=== PATIENT | female | born 1995 | race Caucasian/White ===

== ENCOUNTER 2018-11-20 11:07 | Day surgery (SDC) | payer BC ==
[~2018-11-20 11:07] MED LIST: Fluorescein 5 ML Vial ONE; Midazolam 1 MG/ML 2 ML SDV ONE; Octyl 2-Cyanoacrylate 1 Tube ONE; Propofol 200 MG/20 ML SDV ONE; Sodium Chloride 0.9% 10 ML SDV IV PRN; Sodium Chloride 0.9% 10 ML Syringe FLUSH PRN; Sodium Chloride 0.9% 2.5 ML Syringe FLUSH PRN; fentaNYL 100 MCG/2 ML SDV ONE
[2018-11-20] MEDS ORDERED: Dexamethasone 4 MG/ML 5 ML MDV ONE (12:18)
[2018-11-20] MEDS ORDERED: Lidocaine 2% 5 ML SDV ONE (12:31)
[2018-11-20] MEDS ORDERED: Rocuronium 100 MG/10 ML MDV ONE (12:31)
--- NOTE | 2018-11-20 12:38 | PCM.PREANE ---
Preanesthetic Assessment - Anesthesia/Transfusion/Family Hx Anesthesia History: Prior Anesthesia Without Reaction Family History of Anesthesia Reaction: No Transfusion History: No Prior Transfusion(s) - Review of Systems General: No Symptoms Pulmonary: No Symptoms Cardiovascular: No Symptoms Gastrointestinal: No Symptoms Neurological: No Symptoms Other: Reports: None - Physical Assessment NPO Status Date: 11/20/18 (cl at 0930) O2 Sat by Pulse Oximetry: 100 Respiratory Rate: 16 Vital Signs: Last Vital Signs Temp 97.3 F 11/20/18 11:45 Pulse 78 11/20/18 11:45 Resp 16 11/20/18 11:45 BP 120/71 11/20/18 11:45 Pulse Ox 100 11/20/18 11:45 Height: 5 ft 4 in Weight: 53.977 kg ASA Class: 2 Mental Status: Alert & Oriented x3 Airway Class: Mallampati = 2 Dentition: Reports: Normal Dentition ROM/Head Extension: Full Lungs: Clear to Auscultation, Normal Respiratory Effort Cardiovascular: Regular Rate, Regular Rhythm - Lab Values: Laboratory Last Values WBC 7.16 K/uL (4.0-11.0) 11/19/18 14:48 RBC 4.32 M/uL (4.30-5.90) 11/19/18 14:48 Hgb 12.5 g/dL (12.0-16.0) 11/19/18 14:48 Hct 37.9 % (36.0-46.0) 11/19/18 14:48 MCV 87.7 fL (80.0-98.0) 11/19/18 14:48 MCH 28.9 pg (27.0-32.0) 11/19/18 14:48 MCHC 33.0 g/dL (31.0-37.0) 11/19/18 14:48 RDW Std Deviation 40.9 fl (28.0-62.0) 11/19/18 14:48 RDW Coeff of Shaniqua 13 % (11.0-15.0) 11/19/18 14:48 Plt Count 238 K/uL (150-400) 11/19/18 14:48 MPV 9.90 fL (7.40-12.00) 11/19/18 14:48 Nucleated RBC % 0.0 /100WBC 11/19/18 14:48 Nucleated RBCs # 0 K/uL 11/19/18 14:48 HCG, Qual NEGATIVE (NEG) 11/19/18 14:48 Blood Type O POSITIVE 11/19/18 14:48 Antibody Screen NEGATIVE 11/19/18 14:48 - Allergies Allergies/Adverse Reactions: Allergies Allergy/AdvReac Type Severity Reaction Status Date / Time No Known Allergies Allergy Verified 11/17/18 13:20 - Blood Blood Available: No - Anesthesia Plan Pre-Op Medication Ordered: None - Acknowledgements Anesthesia Type Planned: General Anesthesia Pt an Appropriate Candidate for the Planned Anesthesia: Yes Alternatives and Risks of Anesthesia Discussed w Pt/Guardian: Yes Pt/Guardian Understands and Agrees with Anesthesia Plan: Yes Additional Comments: PMH: recently (4 wks) withdral from opioids (cold turkey), not on buprenorphine , methadone or nalterxone. Discussion held about appropriate use of post op opioids and dangers of tramadol. 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: Reports: Musculoskeletal History: Reports: Fracture Other Musculoskeletal History: hx of fx wrist and clavicle Psychiatric History: Reports: Anxiety Oncologic (Cancer) History: Reports: Cervix - Past Surgical History Head Surgeries/Procedures: Reports: None Female Surgical History: Reports: Section Other Female Surgeries/Procedures: x2, after last was told she had cancerous cells on her cervix- they were removed "with the big scissor" - SUBSTANCE USE Smoking Status *Q: Current Every Day Smoker Tobacco Use Within Last Twelve Months: Cigarettes Recreational Drug Use History: Yes Recreational Drug Type: Reports: Heroin - HOME MEDS Home Medications: Home Meds . [No Known Home Meds] 03/20/14 [History] - CURRENT (IN HOUSE) MEDS Current Meds: Current Medications Sodium Chloride (Saline Flush) 10 ml FLUSH ASDIRECTED PRN PRN Reason: Keep Vein Open Sodium Chloride (Saline Flush) 2.5 ml FLUSH ASDIRECTED PRN PRN Reason: Keep Vein Open Sodium Chloride (Normal Saline) 10 ml IV ASDIRECTED PRN PRN Reason: IV Use Discontinued Medications Dexamethasone (Dexamethasone) Confirm Administered Dose 20 mg .ROUTE .STK-MED ONE Stop: 11/20/18 12:19 Fentanyl (Sublimaze) Confirm Administered Dose 100 mcg .ROUTE .STK-MED ONE Stop: 11/20/18 10:23 Fluorescein Sodium (Ak-Fluor) Confirm Administered Dose 5 ml .ROUTE .STK-MED ONE Stop: 11/20/18 07:49 Acetaminophen (Ofirmev) Confirm Administered Dose 100 mls @ as directed IV .STK- MED ONE Stop: 11/20/18 07:48 Lidocaine (Xylocaine-Mpf 2%) Confirm Administered Dose 5 ml .ROUTE .STK-MED ONE Stop: 11/20/18 12:32 Midazolam HCl (Versed 1 Mg/Ml) Confirm Administered Dose 2 mg .ROUTE .STK-MED ONE Stop: 11/20/18 10:23 Octyl Cyanoacrylate (Dermabond Advance) Confirm Administered Dose 1 applic .ROUTE .STK-MED ONE Stop: 11/20/18 07:48 Propofol (Diprivan 20 Ml) Confirm Administered Dose 200 mg .ROUTE .STK-MED ONE Stop: 11/20/18 10:23 Rocuronium [place] (Zemuron) Confirm Administered Dose 100 mg .ROUTE .STK-MED ONE Stop: 11/20/18 12:32
[2018-11-20] MEDS ORDERED: Phenylephrine/Normal Saline 100 MCG/ML 10 ML Syringe ONE (13:13)
[2018-11-20] MEDS ORDERED: Sugammadex Sodium 200 MG/2 ML VIAL ONE (13:14)
[2018-11-20] MEDS ORDERED: Ketorolac 30 MG/ML SDV ONE (13:17)
[2018-11-20] MEDS ORDERED: Ondansetron 4 MG/2 ML SDV ONE (13:17)
[2018-11-20] MEDS ORDERED: fentaNYL 100 MCG/2 ML SDV IVPUSH PRN ×2 (13:23→13:41)
[2018-11-20] MEDS ORDERED: HYDROmorphone 2 MG/ML SDV IVPUSH PRN ×2 (13:23→13:41)
[2018-11-20] MEDS ORDERED: Ondansetron 4 MG/2 ML SDV IVPUSH PRN ×2 (13:23→13:41)
--- NOTE | 2018-11-20 13:29 | PCM.OPNOTE ---
- General Post-Op/Procedure Note Date of Surgery/Procedure: 11/20/18 Operative Procedure(s): Hystorscopy removal of IUD Pre Op Diagnosis: lost IUD Post-Op Diagnosis: Same Anesthesia Technique: General ET Tube Primary Surgeon: Sebastian Santos EBL in mLs: 10 Complications: None Condition: Good
--- NOTE | 2018-11-20 13:30 | PCM.DCSUM1 ---
Discharge Summary - Hospital Course Diagnosis: Stroke: No - Discharge Data Discharge Date: 11/20/18 Discharge Disposition: Home, Self-Care 01 Condition: Good - Patient Summary/Data Operative Procedure(s) Performed: Hystorscopy removal of IUD - Patient Instructions Diet: Usual Diet as Tolerated Activity: As Tolerated Driving: Do Not Drive Showering/Bathing: October Shower Notify Provider of: Fever, Increased Pain - Discharge Plan Home Medications: Home Meds . [No Known Home Meds] 03/20/14 [History] - Discharge Summary/Plan Comment DC Time >30 min.: Yes - General Info Date of Service: 11/20/18 Functional Status: Reports: Pain Controlled - Review of Systems General: Reports: No Symptoms HEENT: Reports: No Symptoms Pulmonary: Reports: No Symptoms Cardiovascular: Reports: No Symptoms Gastrointestinal: Reports: No Symptoms Genitourinary: Reports: No Symptoms Musculoskeletal: Reports: No Symptoms Skin: Reports: No Symptoms Neurological: Reports: No Symptoms Psychiatric: Reports: No Symptoms - Patient Data Vitals - Most Recent: Last Vital Signs Temp 36.3 C 11/20/18 11:45 Pulse 78 11/20/18 11:45 Resp 16 11/20/18 12:38 BP 120/71 11/20/18 11:45 Pulse Ox 100 11/20/18 12:38 Weight - Most Recent: 53.977 kg Lab Results - Last 24 hrs: Laboratory Results - last 24 hr 11/19/18 11/19/18 11/19/18 Range/Units 14:48 14:48 14:48 WBC 7.16 (4.0-11.0) K/uL RBC 4.32 (4.30-5.90) M/uL Hgb 12.5 (12.0-16.0) g/dL Hct 37.9 (36.0-46.0) % MCV 87.7 (80.0-98.0) fL MCH 28.9 (27.0-32.0) pg MCHC 33.0 (31.0-37.0) g/dL RDW Std Deviation 40.9 (28.0-62.0) fl RDW Coeff of Shaniqua 13 (11.0-15.0) % Plt Count 238 (150-400) K/uL MPV 9.90 (7.40-12.00) fL Nucleated RBC % 0.0 /100WBC Nucleated RBCs # 0 K/uL HCG, Qual NEGATIVE (NEG) Blood Type O POSITIVE Antibody Screen NEGATIVE Med Orders - Current: Current Medications Fentanyl (Sublimaze) 50 mcg IVPUSH Q5M PRN PRN Reason: Pain (severe 7-10) Stop: 11/21/18 13:23 Hydromorphone HCl (Dilaudid) 0.5 mg IVPUSH Q10M PRN PRN Reason: Pain (severe 7-10) Stop: 11/21/18 13:23 Ondansetron HCl (Zofran) 4 mg IVPUSH ONETIME PRN PRN Reason: Nausea/Vomiting Sodium Chloride (Saline Flush) 10 ml FLUSH ASDIRECTED PRN PRN Reason: Keep Vein Open Sodium Chloride (Saline Flush) 2.5 ml FLUSH ASDIRECTED PRN PRN Reason: Keep Vein Open Sodium Chloride (Normal Saline) 10 ml IV ASDIRECTED PRN PRN Reason: IV Use Discontinued Medications Dexamethasone (Dexamethasone) Confirm Administered Dose 20 mg .ROUTE .STK-MED ONE Stop: 11/20/18 12:19 Fentanyl (Sublimaze) Confirm Administered Dose 100 mcg .ROUTE .STK-MED ONE Stop: 11/20/18 10:23 Fluorescein Sodium (Ak-Fluor) Confirm Administered Dose 5 ml .ROUTE .STK-MED ONE Stop: 11/20/18 07:49 Acetaminophen (Ofirmev) Confirm Administered Dose 100 mls @ as directed IV .STK- MED ONE Stop: 11/20/18 07:48 Ketorolac Tromethamine (Toradol) Confirm Administered Dose 30 mg .ROUTE .STK- MED ONE Stop: 11/20/18 13:18 Lidocaine (Xylocaine-Mpf 2%) Confirm Administered Dose 5 ml .ROUTE .STK-MED ONE Stop: 11/20/18 12:32 Midazolam HCl (Versed 1 Mg/Ml) Confirm Administered Dose 2 mg .ROUTE .STK-MED ONE Stop: 11/20/18 10:23 Octyl Cyanoacrylate (Dermabond Advance) Confirm Administered Dose 1 applic .ROUTE .STK-MED ONE Stop: 11/20/18 07:48 Ondansetron HCl (Zofran) Confirm Administered Dose 4 mg .ROUTE .STK-MED ONE Stop: 11/20/18 13:18 Phenylephrine HCl (Phenylephrine In Ns 100 Mcg/Ml) Confirm Administered Dose 1 mg .ROUTE .STK-MED ONE Stop: 11/20/18 13:14 Propofol (Diprivan 20 Ml) Confirm Administered Dose 200 mg .ROUTE .STK-MED ONE Stop: 11/20/18 10:23 Rocuronium Tamms (Zemuron) Confirm Administered Dose 100 mg .ROUTE .STK-MED ONE Stop: 11/20/18 12:32 Sugammadex Sodium (Bridion) Confirm Administered Dose 200 mg .ROUTE .STK-MED ONE Stop: 11/20/18 13:15 - Exam General: Reports: Alert, Oriented HEENT: Reports: Pupils Equal, Pupils Reactive, EOMI, Mucous Membr. Moist/[place] Neck: Reports: Supple Lungs: Reports: Clear to Auscultation, Normal Respiratory Effort Cardiovascular: Reports: Regular Rate, Regular Rhythm GI/Abdominal Exam: Normal Bowel Sounds, Soft, Non-Tender, No Organomegaly, No Distention, No Abnormal Bruit, No Mass, Pelvis Stable (Female) Exam: Normal External Exam, Normal Speculum Exam, Normal Bimanual Exam Rectal (Female) Exam: Normal Exam, Normal Rectal Tone Back Exam: Reports: Normal Inspection, Full Range of Motion Extremities: Normal Inspection, Normal Range of Motion, Non-Tender, No Pedal Edema, Normal Capillary Refill Skin: Reports: Warm, Dry, Intact Wound/Incisions: Reports: Healing Well Neurological: Reports: No New Focal Deficit Psy/Mental Status: Reports: Alert, Normal Affect, Normal Mood
[2018-11-20 14:42] VITALS: BP 101/62
[2018-11-20] MEDS ORDERED: Lactated Ringers 1,000 ML IV SCH (14:45)
--- NOTE | 2018-11-20 14:53 | PCM.POSTAN ---
POST ANESTHESIA ASSESSMENT - MENTAL STATUS Mental Status: Alert, Oriented - RESPIRATORY Respiratory Status: Respiratory Rate WNL, Airway Patent, O2 Saturation Stable - CARDIOVASCULAR CV Status: Pulse Rate WNL, Blood Pressure Stable - GASTROINTESTINAL GI Status: No Symptoms - POST OP HYDRATION Hydration Status: Adequate & Stable
--- NOTE | 2018-11-20 14:55 | PCM48HPAN ---
Post Anesthesia Note - EVALUATION WITHIN 48HRS OF ANESTHETIC Vital Signs in Normal Range: Yes Patient Participated in Evaluation: Yes Respiratory Function Stable: Yes Airway Patent: Yes Cardiovascular Function Stable: Yes Hydration Status Stable: Yes Pain Control Satisfactory: Yes Nausea and Vomiting Control Satisfactory: Yes Mental Status Recovered: Yes Resp Rate: 16
--- NOTE | 2018-11-20 17:05 | OR ---
SURGEON: Sebastian Santos MD DATE OF PROCEDURE: PREOPERATIVE DIAGNOSIS: Lost intrauterine device. POSTOPERATIVE DIAGNOSIS: Lost intrauterine device. OPERATION PERFORMED: Hysteroscopy and removal of the lost IUD. TRAIN SYSTEM OPERATOR: OR tech. ANESTHESIA: General, Dr. May. ESTIMATED BLOOD LOSS: Minimum. COMPLICATIONS: None. FINDING: IUD in the intrauterine cavity. INDICATION FOR SURGERY: This patient does have a lost IUD. I was unable to retrieve it in the office. Ultrasound and KUB show that there is a strong possibility that the IUD is outside the uterus, so the patient is admitted to the outpatient and consented for hysteroscopy, possible diagnostic laparoscopy. PROCEDURE IN DETAIL: The patient was brought to the OR, properly identified. After adequate level of anesthesia, the patient was prepped and draped in sterile fashion as usual. Straight catheter was used to empty the bladder and cervix sequentially dilated to accommodate the small hysteroscope. Hysteroscopy was performed. The IUD is found to be in the right corner of the top of the uterus, and I used the channel through the operative hysteroscopy and I was able to remove the IUD without any problem. Once that is done and accomplished, the procedure ended. Instrument and sponge count was correct. The patient tolerated the procedure well and went to recovery room in stable general condition. RHEA / SHERMAN /[id number]
== END 2018-11-20 14:30 | disposition home or self-care (01) ==
LOC: MW.SDS 11:07
PROVIDERS: ATTEND Obstetrics & Gynecology
DX: T83.39XA Other mechanical complication of intrauterine contraceptive device, initial encounter (principal); F41.8 Other specified anxiety disorders; F17.210 Nicotine dependence, cigarettes, uncomplicated
CPT/HCPCS: 36415; 58562; 84703; 85027; 86850; 86900; 86901; J0131; J1100; J1885; J2001; J2250; J2370; J2405; J2704; J3010; J3490; J7120; A9270-GY

== ENCOUNTER 2018-12-26 04:51 | Emergency (ER) | payer BC ==
[2018-12-26] MEDS ORDERED: Acetaminophen/HYDROcodone 325-5 MG Tab PO ONE (05:11)
[2018-12-26] MEDS ORDERED: Ertapenem 1 GM, Lidocaine 1% 3.2 ML IM STA ×2 (05:14)
[2018-12-26] MEDS ORDERED: Ertapenem 1 GM Vial IM SCH (05:15)
--- NOTE | 2018-12-26 05:17 | EDM.PDOC ---
ED HPI GENERAL MEDICAL PROBLEM - General Chief Complaint: Skin Complaint Stated Complaint: "CYST"? UNDER RIGHT ARM Time Seen by Provider: 12/26/18 05:12 Source of Information: Reports: Patient - History of Present Illness INITIAL COMMENTS - FREE TEXT/NARRATIVE: HISTORY AND PHYSICAL: History of present illness: [Patient presents with an ingrown hair in her right axillary region, symptoms began over the last 24 hours she has a 2 cm area of induration and tenderness there is no fluctuance there is a surrounding 5 cm area of light pink to red cellulitis] No fever nausea vomiting chills sweats Review of systems: As per history of present illness and below otherwise all systems reviewed and negative. Past medical history: As per history of present illness and as reviewed below otherwise noncontributory. Surgical history: As per history of present illness and as reviewed below otherwise noncontributory. Social history: No reported history of drug or alcohol abuse. Family history: As per history of present illness and as reviewed below otherwise noncontributory. Physical exam: HEENT: Atraumatic, normocephalic, pupils reactive, negative for conjunctival pallor or scleral icterus, mucous membranes moist, throat clear, neck supple, nontender, trachea midline. Lungs: Clear to auscultation, breath sounds equal bilaterally, chest nontender. Heart: S1S2, regular, negative for clicks, rubs, or JVD. Abdomen: Soft, nondistended, nontender. Negative for masses or hepatosplenomegaly. Negative for costovertebral tenderness. Pelvis: Stable nontender. Genitourinary: Deferred. Rectal: Deferred. Extremities: Atraumatic, negative for cords or calf pain. Neurovascular unremarkable. Neuro: Awake, alert, oriented. Cranial nerves II through XII unremarkable. Cerebellum unremarkable. Motor and sensory unremarkable throughout. Exam nonfocal. Skin as per history of present illness Diagnostics: [Clinical ] Therapeutics: [ bands 1 g IM Bactrim RPW ] Impression: [ cellulitis with induration right axilla ] Definitive disposition and diagnosis as appropriate pending reevaluation and review of above. Right Axillary Pain Score (Numeric/FACES): 10 - Related Data Allergies Allergy/AdvReac Type Severity Reaction Status Date / Time No Known Allergies Allergy Verified 12/26/18 05:00 Home Meds: Home Meds . 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: Musculoskeletal History: Reports: Fracture Other Musculoskeletal History: hx of fx wrist and clavicle Psychiatric History: Reports: Anxiety Oncologic (Cancer) History: Reports: Cervix - Past Surgical History Head Surgeries/Procedures: Reports: None Female Surgical History: Reports: Section Other Female Surgeries/Procedures: x2, after last was told she had cancerous cells on her cervix- they were removed "with the big scissor" Social & Family History - Tobacco Use Smoking Status *Q: Current Every Day Smoker Years of Tobacco use: 6 Packs/Tins Daily: 0.5 - Recreational Drug Use Recreational Drug Use: Yes ED ROS GENERAL - Review of Systems Review Of Systems: See Below ED EXAM, SKIN/RASH Exam: See Below Course - Vital Signs Last Recorded V/S: Last Vital Signs Temp 96.7 F 12/26/18 04:55 Pulse 96 12/26/18 04:55 Resp 18 12/26/18 04:55 BP 117/55 L 12/26/18 04:55 Pulse Ox 98 12/26/18 04:55 - Orders/Labs/Meds Orders: Active Orders 24 hr Category Date Time Status Ertapenem [INVanz] Med 12/26/18 05:15 Ordered 1 gm IM Q24H Medication Orders Ertapenem (Invanz) 1 gm IM Q24H HOSSEIN Meds: Medications Generic Name Dose Route Start Last Admin Trade Name Freq PRN Reason Stop Dose Admin Ertapenem 1 gm 12/26/18 05:15 Invanz IM Q24H HOSSEIN Discontinued Medications Generic Name Dose Route Start Last Admin Trade Name Freq PRN Reason Stop Dose Admin Hydrocodone Bitart/Acetaminophen 1 tab 12/26/18 05:11 [place] 325-5 Mg PO 12/26/18 05:12 ONETIME ONE Departure - Departure Time of Disposition: 05:17 Disposition: Home, Self-Care 01 Condition: Good Clinical Impression: Cellulitis - Discharge Information Referrals: PCP,None [Primary Care Provider] - Additional Instructions: Medication as prescribed Return if symptoms persist or worsen despite treatment Warm packs may benefit and promote drainage Follow-up with primary care in one week [facility] [address] [place] [id number] The following information is given to patients seen in the emergency department who are being discharged to home. This information is to outline your options for follow-up care. We provide all patients seen in our emergency department with a follow-up referral. The need for follow-up, as well as the timing and circumstances, are variable depending upon the specifics of your emergency department visit. If you don't have a primary care physician on staff, we will provide you with a referral. We always advise you to contact your personal physician following an emergency department visit to inform them of the circumstance of the visit and for follow-up with them and/or the need for any referrals to a consulting specialist. The emergency department will also refer you to a specialist when appropriate. This referral assures that you have the opportunity for follow-up care with a specialist. All of these measure are taken in an effort to provide you with optimal care, which includes your follow-up. Under all circumstances we always encourage you to contact your private physician who remains a resource for coordinating your care. When calling for follow-up care, please make the office aware that this follow-up is from your recent emergency room visit. If for any reason you are refused follow-up, please contact the [facility] emergency department at and asked to speak to the emergency department charge nurse. - My Orders Last 24 Hours: My Active Orders 12/26/18 05:15 Ertapenem [INVanz] 1 gm IM Q24H - Assessment/Plan Last 24 Hours: My Active Orders 12/26/18 05:15 Ertapenem [INVanz] 1 gm IM Q24H
[2018-12-26 06:20] VITALS: BP 115/60
== END 2018-12-26 06:00 | disposition home or self-care (01) ==
LOC: MW.ED 04:51
DX: L03.111 Cellulitis of right axilla (principal); F17.210 Nicotine dependence, cigarettes, uncomplicated
CPT/HCPCS: 96372; 99283; A9270; J1335; J2001

== ENCOUNTER 2018-12-29 07:30 | Emergency (ER) | payer BC ==
--- NOTE | 2018-12-29 07:52 | EDM.PDOC ---
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 On arrival she is cooperative doesn't knowledge the suicide attempt. Review of systems: As per history of present illness and below otherwise all systems reviewed and negative. Past medical history: As per history of present illness and as reviewed below otherwise noncontributory. Surgical history: As per history of present illness and as reviewed below otherwise noncontributory. Social history: No reported history of drug or alcohol abuse. Family history: As per history of present illness and as reviewed below otherwise noncontributory. Physical exam: HEENT: Atraumatic, normocephalic, pupils reactive, negative for conjunctival pallor or scleral icterus, mucous membranes moist, throat clear, neck supple, nontender, trachea midline. Lungs: Clear to auscultation, breath sounds equal bilaterally, chest nontender. Heart: S1S2, regular, negative for clicks, rubs, or JVD. Abdomen: Soft, nondistended, nontender. Negative for masses or hepatosplenomegaly. Negative for costovertebral tenderness. Pelvis: Stable nontender. Genitourinary: Deferred. Rectal: Deferred. Extremities: Atraumatic, negative for cords or calf pain. Neurovascular unremarkable. Neuro: Awake, somnolent, oriented. Cranial nerves II through XII unremarkable. Cerebellum unremarkable. Motor and sensory unremarkable throughout. Exam nonfocal. Diagnostics: CBC CMP EKG chest x-ray UA UDS hCG aspirin Tylenol level Therapeutics: IV O2 monitor Impression: #1 overdose #2 depressive episode suicide attempt #3 polysubstance abuse Definitive disposition and diagnosis as appropriate pending reevaluation and review of above. - Related Data Allergies Allergy/AdvReac Type Severity Reaction Status Date / Time No Known Allergies Allergy Verified 12/29/18 07:33 Home Meds: Home Meds . 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: Musculoskeletal History: Reports: Fracture Other Musculoskeletal History: hx of fx wrist and clavicle Psychiatric History: Reports: Anxiety Oncologic (Cancer) History: Reports: Cervix - Infectious Disease History Infectious Disease History: Reports: None - Past Surgical History Head Surgeries/Procedures: Reports: None Female Surgical History: Reports: Section Other Female Surgeries/Procedures: x2, after last was told she had cancerous cells on her cervix- they were removed "with the big scissor" Social & Family History - Family History Family Medical History: Noncontributory - Tobacco Use Smoking Status *Q: Current Every Day Smoker Years of Tobacco use: 5 Packs/Tins Daily: 0.5 - Recreational Drug Use Recreational Drug Use: Yes Drug Use in Last 12 Months: Yes Recreational Drug Type: Reports: Heroin, Methamphetamine ED ROS GENERAL - Review of Systems Review Of Systems: ROS reveals no pertinent complaints other than HPI. ED EXAM, GENERAL - Physical Exam Exam: See Below (See dictation) Course - Vital Signs Text/Narrative:: Patient had generalized seizure while in emergency department this was treated with Ativan 1 mg IV and lasted approximately 1 minute with associated postictal. Patient has had no airway compromise was no aspiration or associated trauma with this event. I discussed case with Dr. Olivares at [facility] graciously accepted the patient for transfer she'll be transferred via ground with diagnosis of #1 depressive episode with suicide attempt #2 Ultram overdose with seizure #3 history of polysubstance abuse Last Recorded V/S: Last Vital Signs Temp 36.2 C 12/29/18 08:05 Pulse 133 H 12/29/18 08:05 Resp 12 12/29/18 08:05 BP 123/66 12/29/18 08:05 Pulse Ox 98 12/29/18 08:05 - Orders/Labs/Meds Orders: Active Orders 24 hr Category Date Time Status EKG Documentation Completion [RC] STAT Care 12/29/18 07:32 Active UA RFX SANDY AND CULT IF INDIC [URIN] Stat Lab 12/29/18 08:10 Received Sodium Chloride 0.9% [Normal Saline] 1,000 ml Med 12/29/18 07:53 Active IV .BOLUS Medication Orders Sodium Chloride (Normal Saline) 1,000 mls @ 999 mls/hr IV .BOLUS ONE Stop: 12/29/18 08:53 Last Admin: 12/29/18 08:02 Dose: 999 mls/hr Labs: Laboratory Tests 12/29/18 12/29/18 12/29/18 Range/Units 07:40 07:40 07:40 WBC 9.50 (4.0-11.0) K/uL RBC 4.40 (4.30-5.90) M/uL Hgb 13.0 (12.0-16.0) g/dL Hct 37.8 (36.0-46.0) % MCV 85.9 (80.0-98.0) fL MCH 29.5 (27.0-32.0) pg MCHC 34.4 (31.0-37.0) g/dL RDW Std Deviation 39.0 (28.0-62.0) fl RDW Coeff of Shaniqua 12 (11.0-15.0) % Plt Count 265 (150-400) K/uL MPV 9.60 (7.40-12.00) fL Neut % (Auto) 66.5 (48.0-80.0) % Lymph % (Auto) 25.8 (16.0-40.0) % Kimble % (Auto) 5.5 (0.0-15.0) % Eos % (Auto) 2.1 (0.0-7.0) % Baso % (Auto) 0.1 (0.0-1.5) % Neut # (Auto) 6.3 H (1.4-5.7) K/uL Lymph # (Auto) 2.5 H (0.6-2.4) K/uL Kimble # (Auto) 0.5 (0.0-0.8) K/uL Eos # (Auto) 0.2 (0.0-0.7) K/uL Baso # (Auto) 0.0 (0.0-0.1) K/uL Nucleated RBC % 0.0 /100WBC Nucleated RBCs # 0 K/uL Sodium 139 (136-145) mmol/L Potassium 3.3 L (3.5-5.1) mmol/L Chloride 104 (98-107) mmol/L Carbon Dioxide 24.8 (21.0-32.0) mmol/L BUN 10 (7.0-18.0) mg/dL Creatinine 0.8 (0.6-1.0) mg/dL Est Cr Clr Drug Dosing 93.98 mL/min Estimated GFR (MDRD) > 60.0 ml/min Glucose 80 (74-106) mg/dL Calcium 9.2 (8.5-10.1) mg/dL Total Bilirubin 0.5 (0.2-1.0) mg/dL AST 12 L (15-37) IU/L ALT 17 (14-63) IU/L Alkaline Phosphatase 71 (46-116) U/L Total Protein 7.5 (6.4-8.2) g/dL Albumin 4.0 (3.4-5.0) g/dL Globulin 3.5 (2.6-4.0) g/dL Albumin/Globulin Ratio 1.1 (0.9-1.6) TSH 3rd Generation 0.72 (0.36-3.74) uIU/mL Urine HCG, Qual (NEGATIVE) Salicylates 2.2 (0-20) mg/dL Urine Opiates Screen (NEGATIVE) Ur Oxycodone Screen (NEGATIVE) Urine Methadone Screen (NEGATIVE) Acetaminophen <2.0 ug/mL Ur Barbiturates Screen (NEGATIVE) Ur Phencyclidine Scrn (NEGATIVE) Ur Amphetamine Screen (NEGATIVE) U Methamphetamines Scrn (NEGATIVE) U Benzodiazepines Scrn (NEGATIVE) U Cocaine Metab Screen (NEGATIVE) U Marijuana (THC) Screen (NEGATIVE) Ethyl Alcohol < 3.0 mg/dL 12/29/18 12/29/18 Range/Units 08:10 08:10 WBC (4.0-11.0) K/uL RBC (4.30-5.90) M/uL Hgb (12.0-16.0) g/dL Hct (36.0-46.0) % MCV (80.0-98.0) fL MCH (27.0-32.0) pg MCHC (31.0-37.0) g/dL RDW Std Deviation (28.0-62.0) fl RDW Coeff of Shaniqua (11.0-15.0) % Plt Count (150-400) K/uL MPV (7.40-12.00) fL Neut % (Auto) (48.0-80.0) % Lymph % (Auto) (16.0-40.0) % Kimble % (Auto) (0.0-15.0) % Eos % (Auto) (0.0-7.0) % Baso % (Auto) (0.0-1.5) % Neut # (Auto) (1.4-5.7) K/uL Lymph # (Auto) (0.6-2.4) K/uL Kimble # (Auto) (0.0-0.8) K/uL Eos # (Auto) (0.0-0.7) K/uL Baso # (Auto) (0.0-0.1) K/uL Nucleated RBC % /100WBC Nucleated RBCs # K/uL Sodium (136-145) mmol/L Potassium (3.5-5.1) mmol/L Chloride (98-107) mmol/L Carbon Dioxide (21.0-32.0) mmol/L BUN (7.0-18.0) mg/dL Creatinine (0.6-1.0) mg/dL Est Cr Clr Drug Dosing mL/min Estimated GFR (MDRD) ml/min Glucose (74-106) mg/dL Calcium (8.5-10.1) mg/dL Total Bilirubin (0.2-1.0) mg/dL AST (15-37) IU/L ALT (14-63) IU/L Alkaline Phosphatase (46-116) U/L Total Protein (6.4-8.2) g/dL Albumin (3.4-5.0) g/dL Globulin (2.6-4.0) g/dL Albumin/Globulin Ratio (0.9-1.6) TSH 3rd Generation (0.36-3.74) uIU/mL Urine HCG, Qual NEGATIVE (NEGATIVE) Salicylates (0-20) mg/dL Urine Opiates Screen POSITIVE (NEGATIVE) Ur Oxycodone Screen NEGATIVE (NEGATIVE) Urine Methadone Screen NEGATIVE (NEGATIVE) Acetaminophen ug/mL Ur Barbiturates Screen NEGATIVE (NEGATIVE) Ur Phencyclidine Scrn NEGATIVE (NEGATIVE) Ur Amphetamine Screen POSITIVE (NEGATIVE) U Methamphetamines Scrn POSITIVE (NEGATIVE) U Benzodiazepines Scrn NEGATIVE (NEGATIVE) U Cocaine Metab Screen NEGATIVE (NEGATIVE) U Marijuana (THC) Screen POSITIVE (NEGATIVE) Ethyl Alcohol mg/dL Meds: Medications Generic Name Dose Route Start Last Admin Trade Name Freq PRN Reason Stop Dose Admin Sodium Chloride 1,000 mls @ 999 mls/hr 12/29/18 07:53 12/29/18 08:02 Normal Saline IV 12/29/18 08:53 999 mls/hr .BOLUS ONE Administration Discontinued Medications Generic Name Dose Route Start Last Admin Trade Name Freq PRN Reason Stop Dose Admin Lorazepam Confirm 12/29/18 07:56 Ativan Administered 12/29/18 07:57 Dose 2 mg .ROUTE .STK-MED ONE Lorazepam 1 mg 12/29/18 08:02 12/29/18 08:03 Ativan IVPUSH 12/29/18 08:03 1 mg ONETIME ONE Administration Departure - Departure Time of Disposition: 08:29 Disposition: DC/Tfer to Acute Hospital 02 Condition: Good Clinical Impression: Depressive disorder, Drug overdose, Suicide attempt, Seizure - Discharge Information Referrals: PCP,None [Primary Care Provider] - Forms: ED Department Discharge - My Orders Last 24 Hours: My Active Orders 12/29/18 07:32 EKG Documentation Completion [RC] STAT 12/29/18 07:53 Sodium Chloride 0.9% [Normal Saline] 1,000 ml IV .BOLUS 12/29/18 08:10 UA RFX SANDY AND CULT IF INDIC [URIN] Stat - Assessment/Plan Last 24 Hours: My Active Orders 12/29/18 07:32 EKG Documentation Completion [RC] STAT 12/29/18 07:53 Sodium Chloride 0.9% [Normal Saline] 1,000 ml IV .BOLUS 12/29/18 08:10 UA RFX SANDY AND CULT IF INDIC [URIN] Stat
[2018-12-29] MEDS ORDERED: Sodium Chloride 0.9% 1,000 ML IV ONE (07:53)
[2018-12-29] MEDS ORDERED: LORazepam 2 MG/ML SDV ONE (07:56)
[2018-12-29] MEDS ORDERED: LORazepam 2 MG/ML SDV IVPUSH ONE (08:02)
[2018-12-29 08:17] LABS: BLOOD UREA NITROGEN,BUN 10 mg/dL (7.0-18.0); CARBON DIOXIDE,CO2 24.8 mmol/L (21.0-32.0); CHLORIDE,CL 104 mmol/L (98-107); GLUCOSE RANDOM 80 mg/dL (74-106); POTASSIUM,K 3.3 mmol/L (3.5-5.1); SODIUM,NA 139 mmol/L (136-145)
[2018-12-29 08:18] LABS: ACETAMINOPHEN <2.0 ug/mL
--- NOTE | 2018-12-29 09:17 | CR ---
EXAMINATION: Portable chest radiograph. HISTORY: Overdose. FINDINGS: The trachea is midline. The cardiomediastinal silhouette is within normal limits. No focal consolidation or pleural effusion. No pneumothorax. Osseous structures appear unremarkable. IMPRESSION: No acute cardiopulmonary process.
[2018-12-29 12:00] VITALS: BP 124/82; PULSE 116
== END 2018-12-29 10:15 ==
LOC: MW.ED 07:30
DX: T40.4X2A Poisoning by other synthetic narcotics, intentional self-harm, initial encounter (principal); F19.10 Other psychoactive substance abuse, uncomplicated; F32.9 Major depressive disorder, single episode, unspecified; F17.210 Nicotine dependence, cigarettes, uncomplicated
CPT/HCPCS: 36415; 71045; 80053; 80305; 81003; 81025; 84443; 85025; 93005; 96361; 96374; 99285; G0480; J2060; J7040

== ENCOUNTER 2019-04-03 11:32 | Emergency (ER) | payer BC ==
--- NOTE | 2019-04-03 11:46 | EDM.PDOC ---
ED HPI GENERAL MEDICAL PROBLEM - General Chief Complaint: Skin Complaint Stated Complaint: NOSE BLISTER Time Seen by Provider: 04/03/19 11:44 Source of Information: Reports: Patient History Limitations: Reports: No Limitations - History of Present Illness INITIAL COMMENTS - FREE TEXT/NARRATIVE: HISTORY AND PHYSICAL: History of present illness: Patient is a 23-year-old female presents to ED with complaint pimple on her nose. She states it started as a small pimple that she popped. Has gotten bigger and she is doing warm compresses. She denies fevers, chills, nausea, vomiting or other complaints at this time. Review of systems: As per history of present illness and below otherwise all systems reviewed and negative. Past medical history: As per history of present illness and as reviewed below otherwise noncontributory. Surgical history: As per history of present illness and as reviewed below otherwise noncontributory. Social history: No reported history of drug or alcohol abuse. Family history: As per history of present illness and as reviewed below otherwise noncontributory. Physical exam: General: Patient sitting comfortably in no acute distress and nontoxic appearing HEENT: There is a dime sized erythematous nodule with a central scab on the nose. No periorbital swelling or pain with EOM. No intranasal lesions. Atraumatic, normocephalic, pupils reactive, negative for conjunctival pallor or scleral icterus, mucous membranes moist, throat clear, neck supple, nontender, trachea midline. No meningeal signs. Lungs: Clear to auscultation, breath sounds equal bilaterally, chest nontender. Heart: S1S2, regular, negative for clicks, rubs, or overt murmur. Abdomen: Soft, nondistended, nontender. Negative for masses or hepatosplenomegaly. Negative for costovertebral tenderness. No rigidity, rebound , guarding. Pelvis: Stable nontender. Genitourinary: Deferred. Rectal: Deferred. Extremities: Atraumatic, negative for cords or calf pain. Neurovascular unremarkable. Neuro: Awake, alert, oriented. Cranial nerves II through XII unremarkable. Cerebellum unremarkable. Motor and sensory unremarkable throughout. Exam nonfocal. Notes: Diagnostics: [] Therapeutics: [] Prescriptions: Bactrim Impression: Cellulitis Plan: Take antibiotic as instructed Follow up with primary care provider Return to ED as needed as discussed Definitive disposition and diagnosis as appropriate pending reevaluation and review of above. 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: Musculoskeletal History: Reports: Fracture Other Musculoskeletal History: hx of fx wrist and clavicle Psychiatric History: Reports: Anxiety Oncologic (Cancer) History: Reports: Cervix - Infectious Disease History 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, MRSA - Past Surgical History Head Surgeries/Procedures: Reports: None Female Surgical History: Reports: Section Other Female Surgeries/Procedures: x2, after last was told she had cancerous cells on her cervix- they were removed "with the big scissor" Social & Family History - Family History Family Medical History: Noncontributory - Tobacco Use Smoking Status *Q: Current Every Day Smoker Years of Tobacco use: 4 Packs/Tins Daily: 1 - Caffeine Use Caffeine Use: Reports: Coffee - Recreational Drug Use Recreational Drug Use: Yes Recreational Drug Type: Reports: Heroin, Methamphetamine Recreational Drug Use Frequency: Weekly ED ROS GENERAL - Review of Systems Review Of Systems: ROS reveals no pertinent complaints other than HPI. ED EXAM, SKIN/RASH Exam: See Below (see dictation) Course - Vital Signs Last Recorded V/S: Last Vital Signs Temp 97.6 F 04/03/19 11:34 Pulse 90 04/03/19 11:34 Resp 14 04/03/19 11:34 BP 103/60 04/03/19 11:34 Pulse Ox 99 04/03/19 11:34 Departure - Departure Time of Disposition: 11:44 Disposition: Home, Self-Care 01 Condition: Good Clinical Impression: Cellulitis - Discharge Information Prescriptions: Sulfamethoxazole/Trimethoprim [Bactrim Ds Tablet] 1 each PO BID 7 Days #14 tablet Referrals: PCP,Unknown [Primary Care Provider] - Forms: ED Department Discharge Care Plan Goals: The following information is given to patients seen in the emergency department who are being discharged to home. This information is to outline your options for follow-up care. We provide all patients seen in our emergency department with a follow-up referral. The need for follow-up, as well as the timing and circumstances, are variable depending upon the specifics of your emergency department visit. If you don't have a primary care physician on staff, we will provide you with a referral. We always advise you to contact your personal physician following an emergency department visit to inform them of the circumstance of the visit and for follow-up with them and/or the need for any referrals to a consulting specialist. The emergency department will also refer you to a specialist when appropriate. This referral assures that you have the opportunity for follow-up care with a specialist. All of these measure are taken in an effort to provide you with optimal care, which includes your follow-up. Under all circumstances we always encourage you to contact your private physician who remains a resource for coordinating your care. When calling for follow-up care, please make the office aware that this follow-up is from your recent emergency room visit. If for any reason you are refused follow-up, please contact the [facility] Emergency Department at and asked to speak to the emergency department charge nurse. [facility] [address] [place] [address] [id number] [address] [address] Take antibiotic as instructed Follow up with primary care provider Return to ED as needed as discussed
[2019-04-03 11:59] VITALS: BP 103/61; PULSE 95
== END 2019-04-03 11:59 | disposition home or self-care (01) ==
LOC: MW.ED 11:32
DX: J34.0 Abscess, furuncle and carbuncle of nose (principal); F17.210 Nicotine dependence, cigarettes, uncomplicated
CPT/HCPCS: 99282

== ENCOUNTER 2021-12-09 15:08 | Emergency (ER) | payer MEDICAID | END 2021-12-09 15:10 | disposition left against medical advice (07) | LOC: MW.ED 15:08 | DX: Z53.21 Procedure and treatment not carried out due to patient leaving prior to being seen by health care provider (principal) ==